=== PATIENT | male | born 1960 | race American Indian/Alaskan Native ===

== ENCOUNTER 2017-12-17 17:50 | Emergency (ER) | payer BC ==
[2017-12-17 18:01] VITALS: BP 120/78; PULSE 86; RESP 18; TEMP 98; O2SAT 99
--- NOTE | 2017-12-17 21:28 | ED PDOC ---
Upper Extremity Pain/Injury Time Seen by Provider: 12/17/17 18:54 Chief Complaint (Nursing): Upper Extremity Problem/Injury Chief Complaint (Provider): Right Arm / Shoulder Pain History Per: Patient History/Exam Limitations: no limitations Onset/Duration Of Symptoms: Days (x1) Current Symptoms Are (Timing): Still Present Additional Complaint(s): 57 year old male presents to the ED for evaluation of right upper extremity pain for one day. Patient states that he woke up this morning after sleeping on his right shoulder with slight pain to the shoulder which worsened to include his entire arm, associated with numbness and paresthesias of his right hand. He states he did not take any medications prior to arrival, but finds relief by lifting his right arm over his head. Otherwise, denies trauma, falls, weakness, headache, neck pain, chest pain, palpitations, shortness of breath, syncope, and hx of similar symptoms. PMD: none provided Past Medical History Reviewed: Historical Data, Nursing Documentation, Vital Signs Vital Signs: Last Vital Signs Temp 98 F 12/17/17 17:56 Pulse 86 12/17/17 17:56 Resp 18 12/17/17 17:56 BP 120/78 12/17/17 17:56 Pulse Ox 99 12/17/17 17:56 - Medical History PMH: HTN - Surgical History Surgical History: No Surg Hx - Family History Family History: States: Unknown Family Hx - Social History Current smoker - smoking cessation education provided: No Alcohol: None Drugs: Denies - Home Medications Home Medications: Ambulatory Orders Medication Instructions Recorded Cyclobenzaprine [Cyclobenzaprine 10 mg PO Q12H PRN #14 tab 12/17/17 HCl] Ibuprofen [Motrin Tab] 600 mg PO Q6H PRN #30 tab 12/17/17 - Allergies Allergies/Adverse Reactions: Allergies Allergy/AdvReac Type Severity Reaction Status Date / Time No Known Allergies Allergy Verified 12/17/17 17:56 Review of Systems ROS Statement: Except As Marked, All Systems Reviewed And Found Negative Cardiovascular: Negative for: Chest Pain, Palpitations Respiratory: Negative for: Shortness of Breath Musculoskeletal: Positive for: Shoulder Pain (right), Arm Pain (right). Negative for: Neck Pain Neurological: Positive for: Numbness (in right hand), Other (paresthesias to right hand; no syncope). Negative for: Weakness, Headache Physical Exam - Reviewed Nursing Documentation Reviewed: Yes Vital Signs Reviewed: Yes - Physical Exam Appears: Positive for: No Acute Distress Head Exam: Positive for: ATRAUMATIC, NORMOCEPHALIC Skin: Positive for: Normal Color, Warm, Dry Eye Exam: Positive for: Normal appearance Neck: Positive for: Normal, Painless ROM, Supple (but tender over right trapezius) Cardiovascular/Chest: Positive for: Regular Rate, Rhythm Respiratory: Positive for: Normal Breath Sounds. Negative for: Respiratory Distress Extremity: Positive for: Normal ROM, Tenderness (over right deltoid muscles), Other (neurovascular intact bilat upper extremities; positive spurling's test). Negative for: Swelling (or ecchymosis or erythema to right arm) Neurologic/Psych: Positive for: Alert, Oriented (x3) - ECG O2 Sat by Pulse Oximetry: 99 (RA) Pulse Ox Interpretation: Normal Medical Decision Making Medical Decision Making: Time: 1853 Initial Impression: muscle spasm, cervical radiculopathy Initial Plan: --Flexeril 10mg PO --Ibuprofen 400mg PO 2014 Patient is to be d/c with a referral to ortho and continued Ibuprofen use for pain management. Advised to follow up with PMD or return to ED with worsening symptoms. Scribe Attestation: Documented by Angela Tirado, acting as a scribe for Chika Nazario PA-C. Provider Scribe Attestation: All medical record entries made by the Scribe were at my direction and personally dictated by me. I have reviewed the chart and agree that the record accurately reflects my personal performance of the history, physical exam, medical decision making, and the department course for this patient. I have also personally directed, reviewed, and agree with the discharge instructions and disposition. Disposition - Clinical Impression Clinical Impression: Cervical radiculopathy, Muscle spasm - Disposition Referrals: Kailyn Herndon MD [Staff Provider] - Disposition: Routine/Home Disposition Time: 20:00 Condition: IMPROVED Additional Instructions: Take flexeril 10mg every 12 hours as needed for pain Take ibuprofen 600mg every 6 hours with food as needed for pain Followup with primary doctor within 2 days Followup with orthopedics if symptoms persist Return to ED if symptoms worsen Prescriptions: Cyclobenzaprine [Cyclobenzaprine HCl] 10 mg PO Q12H PRN #14 tab PRN Reason: spasm Ibuprofen [Motrin Tab] 600 mg PO Q6H PRN #30 tab PRN Reason: Pain, Moderate (4-7) Instructions: Radiculopathy, Muscle Spasms (DC) Forms: [facility] (Thai), [facility] ED School/Work Excuse
== END 2017-12-17 20:18 | disposition home or self-care (01) ==
LOC: H.ER 17:50
DX: M54.12 Radiculopathy, cervical region (principal); I10 Essential (primary) hypertension